=== PATIENT | male | born 1960 | race Caucasian/White ===

== ENCOUNTER 2016-10-06 08:30 | Outpatient (CLI) | payer MEDICARE ==
[~2016-10-06] VITALS: Ht 172.7 cm; Wt 101.6 kg
[~2016-10-06 08:30] MED LIST: BUSPAR 10MG TAB10 MG PO; CARVEDILOL3.125 M1 PO; CIMZIA200 MG SC; CITALOPRAM HYDR40 MG PO; FLEXERIL10 MG PO; GABAPENTIN300 M1 PO; HYDROCODONE-APA1 TA2 PO; LEVAQUIN 750 M750 MG PO; LEVOTHYROXINE0.05 M3 PO; LYRICA75 MG PO; OMEPRAZOLE20 MG PO; PREDNISONE 10MG10 MG PO; PRILOSEC20 M1 PO; PROTONIX40 MG PO; TRAZADONE HYDR100 MG PO; VENTOLIN H0.09 MG/AC IH
--- NOTE | 2016-10-06 09:41 | RADIOLOGY REPORT PS360 ---
CHEST-PORTABLE HISTORY: S/P PICC LINE PLACEMENT ORDERING PHYSICIAN: Rd Bowens MD PATIENT AGE: 56 years COMPARISON: 09/28/2014 FINDINGS: The cardiomediastinal silhouette and pulmonary vascularity are within normal limits. There are minimal atelectatic changes in the left lower lobe. No acute bony abnormalities. Right upper PICC line has been placed. The tip is projected toward the neck not visible on the exam. IMPRESSION: Abnormal position of the right-sided PICC line with the tip not identified within the region of the neck.
--- NOTE | 2016-10-06 10:06 | RADIOLOGY REPORT PS360 ---
CHEST-PORTABLE HISTORY: REPOSITION PICC LINE ORDERING PHYSICIAN: Rd Bowens MD PATIENT AGE: 56 years COMPARISON: None available FINDINGS: PICC line tip is now in good position in the region superior vena cava. No other changes evident. IMPRESSION: Good position of the right upper extremity PICC line
[2016-10-06 10:15] VITALS: BP 109/70
[2016-10-06 10:21] LABS: GFR (ESTIMATED) 88 ML/MIN (>60)
[2016-10-06 10:45] VITALS: BP 114/73
[2016-10-06] MEDS ORDERED: LIPITOR20 MG PO (11:11)
[2016-10-06] MEDS ORDERED: VITAMIN D31000 IU PO (11:12)
[2016-10-06] MEDS ORDERED: LASIX 20MG. TAB20 MG PO (11:12)
[2016-10-06] MEDS ORDERED: SYMBICORT 10.10.2 M1 IH (11:13)
[2016-10-06 11:15] VITALS: BP 107/74
--- NOTE | 2016-10-06 11:21 | CONSULT NOTE ---
Pharmacokinetic Consult Date of consult: 10/06/16 Time of consult: 1117 Referring provider: DR. CASTRO Reason for consult: VANCOMYCIN DOSING Allergies: Coded Allergies: NSAIDS (Non-Steroidal Anti-Inflamma (NOT ALLERGIC. CAN NOT TAKE DUE TO LIVER PROBLEMS 06/16/15) Home Medications: Active Scripts ALBUTEROL (Ventolin Hfa) 2-4 PUFF IH Q6H6 #1 UNIT Ref 11 Prov: 09/29/14 Reported Medications Atorvastatin Calcium (Lipitor 20MG) 40 MG PO QHS Furosemide (Lasix 20MG) 20 MG PO DAILY CHOLECALCIFEROL (VITAMIN D3) (Vitamin D) 1,000 IUNITS PO DAILY BUDESONIDE/FORMOTEROL FUMARATE (Symbicort 160-4.5 Mcg Inhaler) 1 AER IH BID Citalopram Hydrobromide (Citalopram HBr) 40 MG PO DAILY #90 Buspirone Hcl (Buspar 10MG) 10 MG PO TID #90 TAB Pregabalin (Lyrica 75MG) 100 MG PO BID #60 CAPSULE LEVOTHYROXINE SOD (Levothyroxine 0.05MG) 0.05 MG PO DAILY Trazodone Hcl (Trazodone HCl) 200 MG PO QHSP PRN SLEEP HYDROCODONE/ACETAMINOPHEN (Hydrocodon-Acetaminoph 7.5-325) 1 TAB PO QID OMEPRAZOLE MAGNESIUM (Prilosec 20MG) 20 MG PO DAILY Certolizumab Pegol (Cimzia) 200 MG SC MONTHLY Cyclobenzaprine Hcl (Flexeril) 5 MG PO BID Height (feet): 5 Height (inches): 8.00 Medical History: CAD? No Angina: No CT: No Hypertension? Yes Hyperlipidemia? Yes CHF? No DVT? No PE? No COPD? Yes Asthma? Yes Anemia? No GERD? Yes Gastric ulcers? No GI Bleed? No Hernia? No Thyroid Problems? No Hypothyroidism? No CVA? No Seizures? No Diabetes? No Renal Insuffiency? No UTI? No Stones? No BPH? No GB Disease: No Nephritic Syndrome? No Asplenia? No Hepatitis? No Sickle Cell Disease? No Arthritis? Yes Migraines? No Cataracts? No Glaucoma? No MRSA? No HIV? No TB? No Anxiety? No Depression? No Cancer? No More? Yes Additional hx: RHEUMATOID ARTHRITIS, OSTEOARTHRITIS KIDNEY/LIVER FAILURE 2014 RECOVERING ALCOHOLIC Labs: Laboratory Tests 10/06/16 1010: Creatinine 0.9, Estimated GFR (MDRD) 88 Problem List: 1. Osteomyelitis Plan: BASED ON PATIENT FACTORS, RECOMMEND VANCOMYCIN 2 GM IV Q12H. PHARMACY WILL FOLLOW DAILY AND ADJUST APPROPRIATE. at 1121
[2016-10-06 11:45] VITALS: BP 120/83
[2016-10-06 12:15] VITALS: BP 118/86
[2016-10-06 12:25] VITALS: BP 119/78
== END 2016-10-06 12:45 | disposition home or self-care (01) ==
LOC: COP 08:30
PROVIDERS: Internal Medicine Adolescent Medicine
PROC: 05HB33Z Insertion of Infusion Device into Right Basilic Vein, Percutaneous Approach (ICD-10-PCS; principal; 2016-10-06)
DX: L03.012 Cellulitis of left finger (principal)
CPT/HCPCS: C1751; J3370

== ENCOUNTER → 2016-10-15 | Outpatient (CLI) | payer MEDICARE ==
[~2016-10-15] MED LIST changes: +LASIX 20MG. TAB20 MG PO; +LIPITOR20 MG PO; +SYMBICORT 10.10.2 M1 IH; +VITAMIN D31000 IU PO
== END ==
LOC: CARL-LAB 08:58
DX: M86.9 Osteomyelitis, unspecified (principal)

== ENCOUNTER → 2016-11-09 | Outpatient (CLI) | payer MEDICARE ==
[2016-11-09 13:56] LABS: LYMPH # 1.8 K/mm3 (0.7-4.5); LYMPH % 23.6 % (10-50)
[2016-11-09 13:59] LABS: HEMOGLOBIN 12.8 g/dL (14.1-18.0)
[2016-11-09 15:24] LABS: BUN 12 mg/dL (7-18)
[2016-11-09 15:29] LABS: GFR (ESTIMATED) 45 ML/MIN (>60)
== END ==
LOC: CARL-LAB 10:25
PROVIDERS: Internal Medicine Adolescent Medicine
DX: M86.9 Osteomyelitis, unspecified (principal); M06.9 Rheumatoid arthritis, unspecified; I10 Essential (primary) hypertension; Z45.2 Encounter for adjustment and management of vascular access device

== ENCOUNTER → 2017-03-24 | Outpatient (CLI) | payer MEDICARE ==
--- NOTE | 2017-03-25 14:20 | RADIOLOGY REPORT PS360 ---
KNEE-3 VIEWS-LT HISTORY: STRAIN OF LEFT KNEE, INITIAL ENCOUNTER Patient Age: 56 years: Male Ordering Physician: Rd Bowens MD TECHNIQUE: 3 views left knee COMPARISON :Previous 01/11/2012 left knee study. FINDINGS The patient has some vague sclerotic changes within the bone here at the proximal tibial metaphysis; as well as at the distal femoral metaphysis; as well as condylar regions adjacent to the notch. This pattern was vaguely evident on 2012 AP knees. Indeed there is also an MRI from 2012 which further confirms old bone infarct type pattern in these regions. No acute fracture joint spaces fairly well maintained at both medial and lateral compartment. Upper normal to slightly increased joint fluid at suprapatellar bursa. No prominent joint effusion. There is diffuse faint calcification of the arteries at the SFA, popliteal artery, and trifurcation vessels with this pattern likely reflecting underlying diabetes. Question some mild soft tissue swelling at the soft tissues overlying patella and patellar tendon. Clinical correlation required. Subtle observation. IMPRESSION No acute findings. No fracture. No significant joint effusion evident . 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 (These were evident on a August 2012 MRI knee)
== END ==
LOC: RAD 17:30
DX: S86.912A Strain of unspecified muscle(s) and tendon(s) at lower leg level, left leg, initial encounter (principal)

== ENCOUNTER 2017-05-09 13:17 | Day surgery (SDC) | payer MEDICARE ==
--- NOTE | 2017-05-09 15:22 | Operative Note ---
Upper GI Endoscopy Procedure date: 05/09/17 Date of : 64 Procedure:Upper GI Endoscopy Esophagogastroduodenoscopy with cold biopsies and TTS balloon dilation Indications: Mr. Bunch is a 56-year-old gentleman who is here for diagnostic/therapeutic upper endoscopy. He does state that he had an esophageal meat impaction (chicken ) and went to the [facility] where he had extraction of a year ago. He has had some ongoing dysphagia to breads and meats. He does have hoarseness and globus sensation. He reports some heartburn and reflux. He has had some bloating and belching. He reports regular bowel function but does have obstipation/incomplete evacuation. He is uncertain whether his esophagus was dilated one year ago. Performing Provider: Peter Julian MD Referring Provider: Rd Bowens M.D. Sedation: Fentanyl 150 mg IV/Versed 8 mg IV Procedure: Prior to the procedure, a history and physical exam was performed, and patients medications and allergies were reviewed. The risks and benefits of the procedure and the sedation options and risks were discussed with the patient. All questions were answered and informed consent was obtained. The patient was brought to the procedure room. Patient identification and proposed procedure were verified by the physician and the nurse. The patient was placed in a left lateral decubitus position and the scope was passed under direct vision. Throughout the procedure, the patient's blood pressure, pulse, and oxygen saturations were monitored continuously. The endoscope was introduced through the mouth, and advanced to the second part of duodenum. The upper GI endoscopy was accomplished without difficulty. The patient tolerated the procedure well. Findings: The scope was passed directly into the upper esophagus and advanced to the third portion of the duodenum. The post bulbar duodenum and duodenal bulb were normal with normal mucosa and conniventes. The scope was withdrawn through a normal duodenal bulb and pylorus into the stomach. There was moderate bile reflux. There was also evidence of chronic gastritis with reticular pattern suggestive of H. pylori. Cold biopsies were obtained. Upon retroflexion there was no hiatal hernia. 2 biopsies were taken in the antrum and along the lesser curvature for histology. The scope was then withdrawn into the esophagus. There was strong tertiary contractions and dysmotility. There was also failure of relaxation of the lower esophageal sphincter. There was also a ring like stricture/Schatzki's ring that was dilated maximally to 17 mm (51 Chinese) with fracturing of the Schatzki's ring. There was also some resistance at the cricopharyngeus that was also dilated to 17 mm. There was no evidence of reflux esophagitis or Kan's. Immediate complications: None EBL (ml): 0 Impression: 1. Schatzki's ring dilated to 20 mm 2. Esophageal dysmotility/spasm with increased LES and UES resting tonerule out early achalasia 3. Chronic peptic gastritisrule out H. pylori 4. Duodenal reflux/bile reflux Recommendations: The patient should've clinical improvement with dilation. I will place the patient on omeprazole for 3 months. I would also encourage a fiber bowel regimen. If the patient has recurrent dysphagia, I would recommend initial barium esophagram to see if there is a bird beak appearance with significant tertiary contractions suggestive of achalasia. If the barium esophagram is suggestive, would consider high resolution esophageal manometry subsequently. at 5065
[2017-05-09 16:04] VITALS: BP 126/73
== END 2017-05-09 15:53 | disposition home or self-care (01) ==
LOC: SDC 13:17
PROVIDERS: Internal Medicine Gastroenterology
PROC: 0DB78ZX Excision of Stomach, Pylorus, Via Natural or Artificial Opening Endoscopic, Diagnostic (ICD-10-PCS; 2017-05-09)
PROC: 0D758ZZ Dilation of Esophagus, Via Natural or Artificial Opening Endoscopic (ICD-10-PCS; 2017-05-09)
PROC: 0DB68ZX Excision of Stomach, Via Natural or Artificial Opening Endoscopic, Diagnostic (ICD-10-PCS; principal; 2017-05-09 14:30)
DX: K22.2 Esophageal obstruction (principal); K22.4 Dyskinesia of esophagus; K29.50 Unspecified chronic gastritis without bleeding; K21.9 Gastro-esophageal reflux disease without esophagitis; Z79.84 Long term (current) use of oral hypoglycemic drugs; Z79.51 Long term (current) use of inhaled steroids; Z79.899 Other long term (current) drug therapy
CPT/HCPCS: C1726